=== PATIENT | female | born 1990 | race Two or more races ===

== ENCOUNTER 2018-07-03 04:29 | Inpatient (IN) | payer OTHER ==
[2018-07-03 04:55] VITALS: BMI 28.8
[2018-07-03] MEDS ORDERED: cefOXitin IV 2 gm in Dextrose 2 GM/50 ML BAG IVPB ONE (05:09)
[2018-07-03] MEDS ORDERED: Lactated Ringer's 1,000 ML IV ONE (05:09)
[2018-07-03] MEDS ORDERED: Sodium Citrate/Citric Acid 15 ml Sol PO ONE (05:09)
[2018-07-03] MEDS ORDERED: Morphine 1 mg/ml preservative-free Inj(Duramorph) ONE (05:44)
[2018-07-03] MEDS ORDERED: Phenylephrine 10 mg/ml Inj ONE (05:44)
[2018-07-03] MEDS ORDERED: ePHEDrine 50 mg/ml Inj ONE (05:44)
[2018-07-03 05:46] LABS: SQUAMOUS EPITHIAL 5 /hpf (0-5); URINE BILIRUBIN NEGATIVE (NEGATIVE); URINE BLOOD NEGATIVE (NEGATIVE); URINE CLARITY Hazy (Clear); URINE COLOR Amber (YELLOW); URINE GLUCOSE (UA) NORMAL (Normal); URINE LEUKOCYTE ESTERASE NEG Leu/uL (Negative); URINE PROTEIN 2+ mg/dL (NEGATIVE)
[2018-07-03 05:48] LABS: BASO # 0.1 K/uL (0.0-0.2); BASO % 0.7 % (0.0-2.0); EOS # 0.2 K/uL (0.0-0.7); EOS % 1.8 % (0.0-4.0); LYMPH # 2.5 K/uL (1.0-4.3); LYMPH % 22.7 % (20.0-40.0); MEAN CORPUSCULAR HEMOGLOBIN 28.9 pg (27.0-31.0); MEAN PLATELET VOLUME 7.9 fL (7.2-11.7); MONO # 0.8 K/uL (0.0-0.8); MONO % 7.9 % (0.0-10.0); NEUT # 7.2 K/uL (1.8-7.0); NEUT % 66.9 % (50.0-75.0); NRBC % 0.3 % (0.0-2.0); RBC 4.5 Mil/uL (3.80-5.20); RED CELL DISTRIBUTION WIDTH 16.7 % (11.5-14.5); WHITE BLOOD COUNT 10.8 K/uL (4.8-10.8)
[2018-07-03 06:00] LABS: ALB/GLOB RATIO 1.2 (1.0-2.1); ALBUMIN 3.7 g/dL (3.5-5.0); ALT/SGPT 10 U/L (9-52); AST/SGOT 16 U/L (14-36); BLOOD UREA NITROGEN 9 mg/dL (7-17); CALCIUM 9.3 mg/dl (8.6-10.4); GFR NON-AFRICAN AMERICAN > 60
[2018-07-03 06:04] LABS: PROTHROMBIN TIME 11.4 SECONDS (9.7-12.2)
--- NOTE | 2018-07-03 06:17 | OBHP ---
Datetime: 07/03/2018 05:30 IP Adm Impression: Term, intrauterine IP Chief Complaint Other: Cholestasis, Previous C/S x 1 IP Admit Plan: Admit to unit Admit Comment, IP Provider: Patient is a 27 year old at 38w6d MARJORIE 07/11/18 by LMP 10/04/17 who is a previous C/S x 1 who presents with cholestasis and ctx pain since last night evry 5 min 11/15. P atient is doing well, endorses FM that have been les over past week, LOF or VB. States that with thi s she was experiencing generalized itchiness and is on Ursodiol. Patient is a private of Dr Francisca Ron. 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 Age of menarche 12 Denies history of abnormal pap smears Allergies: NKDA Medications: PNV, Ursodiol, Iron Medical History: Denies Surgical History: C/S x 1, D+C Social History: Denies alcohol, tobacco, drug use PE: see above A/P: 27 year old at 38w6d hx of cholestasis of with ROM for repeat C/S -Admit to unit -CEFM and TOCO -Diet: NPO -Cefoxitin, bictra, pepcid preoperatively -LR bolus -Anesthesia notified Plan discussed with Dr Elie Luong DO PGY-2 agree iwth above pt seen adn examiend ROM , pervious cxs declien dTOLAC for RPTLCS R ron Pelvic Type - PN: Adequate Extremities - PN: Normal Abdomen - PN: Normal Back - PN: Normal Breast - PN: Normal Lungs - PN: Normal Heart - PN: Normal Thyroid - PN: Normal Neurologic - PN: Normal HEENT - PN: Normal General - PN: Normal Presentation-Admit: Vertex FHR - Baseline A Provider: 145 Membranes, Provider: Ruptured Contraction Comments Provider: q2-8 min Comments, ACOG Physical Exam: VSS Gen: NAD Abd: Soft, gravid, +palabple ctx, no rash, +excoritiosn Ext: No clubbing, cyanosis, edema Gestation - Est Wks by US: 38.6 IP Hx Assessment: The History has been Reviewed and is Current EGA AdmitDate IP: 38.6 Vital Signs Provider: Reviewed IP Chief Complaint: Uterine contractions; Suspected ruptured membranes NICHD Variability Prov Fetus A: Moderate 6-25bpm NICHD Accel Fetus A IP Provider: 15X15 FHR Category Provider Fetus A: Category I NICHD Decel Fetus A IP Provider: None Dilatation, Provider: 2 Effacement, Provider: 50 Station, Provider: -3 Genitourinary Exam: Normal DTRs - PN: Normal
[2018-07-03] MEDS ORDERED: Oxytocin 20 units in LR 2,000 ML IV ONE (06:29)
--- NOTE | 2018-07-03 06:34 | OBADHP ---
Datetime: 07/03/2018 05:30 IP Chief Complaint Other: Cholestasis, Previous C/S x 1 Admit Comment, IP Provider: Patient is a 27 year old at 38w6d MARJORIE 07/11/18 by LMP 10/04/17 who is a previous C/S x 1 who presents with cholestasis and ctx pain since last night evry 5 min /. P atient is doing well, endorses FM that have been les over past week, LOF or VB. States that with thi s she was experiencing generalized itchiness and is on Ursodiol. Patient is a private of Dr Francisca Ron. 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/17 Age of menarche 12 Denies history of abnormal pap smears Allergies: NKDA Medications: PNV, Ursodiol, Iron Medical History: Denies Surgical History: C/S x 1, D+C Social History: Denies alcohol, tobacco, drug use PE: see above A/P: 27 year old at 38w6d hx of cholestasis of with ROM for repeat C/S -Admit to unit -CEFM and TOCO -Diet: NPO -Cefoxitin, bictra, pepcid preoperatively -LR bolus -Anesthesia notified Plan discussed with Dr Elie Luong DO PGY-2 agree iwth above pt seen adn examiend ROM , pervious cxs declien dTOLAC for RPTLCS R ron Pelvic Type - PN: Adequate Extremities - PN: Normal Abdomen - PN: Normal Back - PN: Normal Breast - PN: Normal Lungs - PN: Normal Heart - PN: Normal Thyroid - PN: Normal Neurologic - PN: Normal HEENT - PN: Normal General - PN: Normal Presentation-Admit: Vertex FHR - Baseline A Provider: 145 Membranes, Provider: Ruptured Contraction Comments Provider: q2-8 min Comments, ACOG Physical Exam: VSS Gen: NAD Abd: Soft, gravid, +palabple ctx, no rash, +excoritiosn Ext: No clubbing, cyanosis, edema Gestation - Est Wks by US: 38.6 IP Hx Assessment: The History has been Reviewed and is Current Vital Signs Provider: Reviewed IP Chief Complaint: Uterine contractions; Suspected ruptured membranes NICHD Variability Prov Fetus A: Moderate 6-25bpm NICHD Accel Fetus A IP Provider: 15X15 FHR Category Provider Fetus A: Category I NICHD Decel Fetus A IP Provider: None Dilatation, Provider: 2 Effacement, Provider: 50 Station, Provider: -3 Genitourinary Exam: Normal DTRs - PN: Normal EGA AdmitDate IP: 38.6 IP Adm Impression: Term, intrauterine IP Admit Plan: Admit to unit
[2018-07-03] MEDS ORDERED: Midazolam 2 MG/2 ML VIAL ONE (07:05)
--- NOTE | 2018-07-03 07:47 | OBDS ---
DELIVERY PERSONNEL Delivery Doctor: Francisca Ron MD Scrub Nurse: NATACHA POST Ham Smoker: Anupama Manjarrez RN Anesthesiologist: DR MCKEON MATERNAL INFORMATION Delivery Anesthesia: Spinal Medications in Delivery: pitocin Placenta Cultured: No Maternal Complications: None RN Comments: alive male infant delivered by dr ron, assisted by dr pramod cortez c/s. infant attended by dr alex rn Provider Comments: boy aprag 9,9 ] nroaml ueurs, tubes adn ovaries b/l LABOR SUMMARY EDC: 07/11/2018 00:00 No. Babies in Womb: 1 Attempted: No LABOR INFORMATION Oxytocin: N/A Group B Beta Strep: Not Done Antibiotics # of Doses: MEFOXIN 2 GM X 1 Antibiotics Time of Last Dose: 6.08 am Steroids Given: None Reason Steroids Not Administered: Not Applicable MEMBRANES Membranes Rupture Method: Spontaneous Rupture of Membranes: 07/03/2018 05:58 Length of Rupture (hrs): 0.95 Amniotic Fluid Color: Clear Amniotic Fluid Amount: Moderate Amniotic Fluid Odor: Normal STAGES OF LABOR Stage 3 hrs: 0 Stage 3 min: 1 CSECTION DELIVERY Primary Indication: Repeat Elective Secondary Indication: cholestasis in preg CSection Urgency: Elective CSection Incidence: Repeat Labor: N/A Elective: Elective CSection Incision: Lower Uterine Transverse BABY A INFORMATION Delivery Date/Time: 07/03/2018 06:55 Method of Delivery: Born in Route : No : N/A Forceps: N/A Vacuum Extraction: N/A Shoulder Dystocia : No SHOULDER DYSTOCIA BABY A Infant Delivery Date/Time: 07/03/2018 06:55 PRESENTATION/POSITION BABY A Presentation: Cephalic Cephalic Presentation: Vertex Vertex Position: Right Occipital Anterior Breech Presentation: N/A PLACENTA INFORMATION BABY A Placenta Delivery Time : 07/03/2018 06:56 Placenta Method of Delivery: Manual Removal Placenta Status: Delivered SCORES BABY A Heart Rate 1 min: >100 bpm Resp Effort 1 min: Good Cry Reflex Irritability 1 min: Cough or Sneeze or Pulls Away Muscle Tone 1 min: Active Motion Color 1 min: Body [place], Extremities Blue SCORE 1 MIN: 9 Heart Rate 5 min: >100 bpm Resp Effort 5 min: Good Cry Reflex Irritability 5 min: Cough or Sneeze or Pulls Away Muscle Tone 5 min: Active Motion Color 5 min: Body [place], Extremities Blue SCORE 5 MIN: 9 INFORMATION BABY A Gestational Age at Delivery: 38.6 Gestational Status: Term Infant Outcome : Liveborn Condition : Stable Infant Sex: Male IDENTIFICATION/MEDS BABY A ID Band Number: [id number] ID Band Location: Left Leg; Left Arm Sensor Applied: Yes Sensor Number: [id number] Sensor Location : Cord Clamp Vitamin K Given : Not Given Erythromycin Given: Not Given WEIGHT/LENGTH BABY A Infant Birthweight (gms): 3635 Infant Weight (lb): 8 Weight (oz): 0 Length Inches: 19.00 Infant Length cms: 48.3 CORD INFORMATION BABY A No. 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
[2018-07-03 09:54] LABS: HEPATITIS B SURFACE AG Negative (NEGATIVE)
[2018-07-03 10:00] LABS: HEPATITIS A IGM NEGATIVE (NEGATIVE); HEPATITIS B CORE AB NEGATIVE (NEGATIVE)
[2018-07-03 10:11] LABS: HEPATITIS C ANTIBODY NEGATIVE (NEGATIVE)
[2018-07-03] MEDS: Simethicone 80 mg Chewtab PO SCH ×4 (10:50→22:41)
[2018-07-03] MEDS: Prenatal Multivit/Folic Acid/Iron Tab PO SCH (10:51)
--- NOTE | 2018-07-03 12:52 | OP ---
PROCEDURE DATE: 07/03/2018 PREOPERATIVE DIAGNOSES: Rupture of membranes, previous section, junie in labor, intrahepatic cholestasis. POSTOPERATIVE DIAGNOSES: Rupture of membranes, previous section, junie in labor, intrahepatic cholestasis. PROCEDURE: Repeat low transverse section. SURGEON: Francisca Blackburn MD ANESTHESIA: Spinal. OPERATING FINDINGS: Live male , cephalic presentation, Apgars 9 and 9. Normal-appearing uterus, tubes, and ovaries bilaterally. Chick Room Supervisor was present for delivery. Dr. Marixa Luong____ was the surgical instrument maker, present for the entire case, essentially in gaining entry, retraction, exposure, holding the bladder blade, helping in delivery of the baby, closing all layers, and was present for the entire case. ESTIMATED BLOOD LOSS: 800 mL. BLOOD PRODUCTS: None. COMPLICATIONS: None. SPECIMEN SENT TO PATHOLOGY: None. DESCRIPTION OF PROCEDURE: The patient was taken to the operating room where she was given spinal anesthesia. Once found to be adequate, she was placed on the operating table in dorsal supine position with legs supported using stirrups. The patient was then prepped and draped in the usual sterile fashion. A time-out confirmed correct patient and correct procedure. Bimanual exam was performed. A Pfannenstiel skin incision was made with a scalpel and carried down to the underlying fascia with the Bovie. The fascia was incised in the midline. The incision was extended laterally with the Bovie. The inferior aspect of the fascial incision was grasped with Tato clamps and the and the underlying rectus muscles were dissected off bluntly. The rectus muscles were then bluntly in the midline using two Allis clamps in the clear area. The peritoneum was identified and entered into clear space. The lower end of the [place] was then reinserted. Lower uterine segment was incised in a transverse fashion. The uterine incision was extended laterally with bandage scissors. The surgeon's hand entered the uterine cavity, there was clear fluid noted to be draining from the midline incision. Finally, the surgeon's hand entered the uterine cavity. The 's head was delivered atraumatically with reduction of nuchal cord. Following this, delivery of the shoulders followed by delivery of the body. Both oral and nasal passages of the baby were bulb suctioned. The umbilical cord was clamped and cut. The baby was handed off to the awaiting absence management consultant. Cord blood and cord gases were collected and sent x2. The placenta was then delivered manually. The uterus was exteriorized and cleared of all clots and debris. The uterine incision was closed with 0 Vicryl in a running continuous locked fashion. A second layer of the same suture was used to close the uterus in running imbricating manner. There were normal tubes and ovaries bilaterally. The uterus was then returned to the abdomen. Pericolic gutters were cleared of all clots and debris. There was good hemostasis at the uterine incision site. The peritoneum was reapproximated and closed with a 2-0 chromic in a running continuous fashion and the rectus was reapproximated with a 2-0 chromic in an interrupted manner. The subcutaneous space was closed with a 2-0 plain in an interrupted manner. The keloid skin incision was then carefully removed as requested by the patient, sent to pathology for culture. The skin was reapproximated with 4-0 Monocryl in a running subcuticular fashion. At the end of the procedure, all needle, sponge, and instrument counts were noted to be correct x2. The patient tolerated the procedure well and was transferred to the recovery room in stable condition. Francisca Blackburn MD JOANA
[2018-07-03] MEDS: ceFAZolin 1 GM in Sodium Chloride 0.9% 100 ML IVPB SCH ×3 (14:31→22:44)
[2018-07-03] MEDS: Oxycodone/Acetaminophen 5/325 mg Tab PO PRN (19:48)
[2018-07-04] MEDS: Oxycodone/Acetaminophen 5/325 mg Tab PO PRN ×2 (03:46→18:51)
[2018-07-04] MEDS: ceFAZolin 1 GM in Sodium Chloride 0.9% 100 ML IVPB SCH (05:23)
[2018-07-04] MEDS ORDERED: Bisacodyl 5mg EC Tab PO ONE (07:56)
[2018-07-04 08:18] LABS: HEMOGLOBIN 12.2 g/dL (11.0-16.0); MEAN CELL VOLUME 85.9 fL (81.0-99.0); MEAN CORPUSCULAR HEMOGLOBIN 28.6 pg (27.0-31.0); MEAN CORPUSCULAR HGB CONC 33.3 g/dL (33.0-37.0); MEAN PLATELET VOLUME 7.6 fL (7.2-11.7); RBC 4.27 Mil/uL (3.80-5.20); RED CELL DISTRIBUTION WIDTH 16.5 % (11.5-14.5); WHITE BLOOD COUNT 13.2 K/uL (4.8-10.8)
[2018-07-04] MEDS: Prenatal Multivit/Folic Acid/Iron Tab PO SCH (09:42)
[2018-07-04] MEDS: Simethicone 80 mg Chewtab PO SCH ×3 (09:43→17:03)
--- NOTE | 2018-07-04 14:26 | OBPPN ---
Datetime: 07/04/2018 07:02 PP Pain Prov: Within normal limits PP Nausea Prov: Denies PP Flatus Prov: No PP BM Prov: No PP C/S Incision Prov: Normal PP Progress Prov: Normal PP Comments Phys Exam Prov: inciscion c/d/i no uterine tenderss PP Impression Prov: Normal progression PP Plan Prov: Continue present management PP Progress Note Prov: Patient seen and examined at bedside. Per nursing no acute events overnight. Patient is doing well, pain is controlled with percocet. Perry removed this morning. She is out of be d to chair and tolerating diet. She has not passed flatus or had a bowel movement yet. Breast feeding . Denies headaches, dizziness, cp, palpitations, sob. VS: 104/64 104 98.0 Gen: AAOx3, NAD Resp: CTab/l CVS: +S1/S2, RRR Abdomen: Soft, fundus firm below level of umbiucs no guarding no reboudn tendnerss, no rgidty incision c/d/i with steristrips VE moder ate lochai, non fouls semlling Ext: No clubbing, cyanosis, edema Labs: 10.8>13.0/38.3<299 F/U am CBC O positive Rubella immue A/P: 27 year old at 38w6d s/p RLCTD POD#1 -Stable, afebrile -Pain control - motrin and percocet as needed -Perry removed, awaiting voiding trial -Advance diet as tolerated -F/U am CBC -Encourage ambulation and hydration -Encourage and ISS use -Continue routine postoperative care Plan discussed with Dr Alexey Luong DO PGY-2 agree with above pt seen adn examined pain managment am cbc Vital Signs Provider PP: Reviewed
[2018-07-05] MEDS: Oxycodone/Acetaminophen 5/325 mg Tab PO PRN ×5 (00:21→21:31)
[2018-07-05] MEDS: Simethicone 80 mg Chewtab PO SCH ×5 (00:22→21:27)
[2018-07-05] MEDS: Prenatal Multivit/Folic Acid/Iron Tab PO SCH (11:59)
[2018-07-06 00:25] VITALS: O2SAT 98
[2018-07-06] MEDS: Oxycodone/Acetaminophen 5/325 mg Tab PO PRN (03:04)
[2018-07-06] MEDS: Simethicone 80 mg Chewtab PO SCH (09:42)
[2018-07-06] MEDS: Prenatal Multivit/Folic Acid/Iron Tab PO SCH (09:46)
--- NOTE | 2018-07-06 11:21 | OBPPN ---
Datetime: 07/06/2018 11:20 PP Pain Prov: Within normal limits PP Nausea Prov: Denies PP Flatus Prov: Yes PP Breasts Prov: Normal PP Heart Prov: Normal PP Lungs Prov: Normal PP Abdomen/Uterus Prov: Normal PP Lochia Prov: Normal PP Vulva/Perineum Prov: Normal PP CVA Tenderness Prov: Normal PP Extremities Prov: Normal Datetime: 07/05/2018 11:24 PP BM Prov: No PP Comments Phys Exam Prov: Insicion site is clean, dry and non draining PP Impression Prov: Normal progression PP Plan Prov: Continue present management PP Progress Note Prov: Patient seen and examined at bedside this monring. No acute events noted over night. Patient denies any pain, nausea and vomiting and is using the brain without complaint. She is also tolerating her diet without difficulty. She is passing flatus but denies BM at this time. Also d enies CP, SOB, fevers, chills, headaches, back pain, abdominal paibn, numbness, tingling and swelling . VSS A/P: 27 year old at 38w6d s/p RLCTD and is POD#2 -continue routine post partem management -continue pain control as needed with percocet and motrin -continue ambulation as tolerated -advance diet as tolerated -continue breast feeding Rea Beltre, PGY1 _ agree iwth aove pt oh and mxained pain magent Vital Signs Provider PP: Reviewed; Within Normal Limits
--- NOTE | 2018-07-06 11:26 | OBPPN ---
Datetime: 07/06/2018 11:20 PP C/S Incision Prov: Normal PP Progress Prov: Normal PP Impression Prov: Normal progression PP Plan Prov: Continue present management PP Progress Note Prov: pt seen and examined vss pe see above a/p s/p RLTCS POD #3 dc home rot 1 week precaiton Vital Signs Provider PP: Reviewed; Within Normal Limits
--- NOTE | 2018-07-06 11:33 | OBDCSUM ---
Datetime: 07/06/2018 11:25 Discharged to, Provider: Home Follow up at, Provider: Dr Stewart Disch Instr Activity: Normal activity Disch Instr Diet: Regular Discharge Instructions, Provider: Routine instructions given Discharge Diagnosis, Provider: Term Delivered Discharge Time: 07/06/2018 11:25 Follow up in weeks, Provider: 1 week Disch Referrals: None Contraception discussed, Prov: Yes Disch Activity Restrictions: No exercising; No lifting Contraception after Delivery: Not Planning to Use
[2018-07-06] MEDS ORDERED: Influenza Vaccine 60 mcg/0.5 mL SYR (4YR UP) IM ONE (18:19)
[2018-07-06 23:26] VITALS: BP 116/73; PULSE 85; RESP 18; TEMP 98.3
== END 2018-07-06 17:00 | disposition home or self-care (01) | DRG 786 ==
LOC: C.EROB 04:29 → C.4D 05:09 → C.4M 11:30
PROVIDERS: ADMIT Obstetrics & Gynecology; ATTEND Obstetrics & Gynecology
PROC: 10D00Z1 Extraction of Products of Conception, Low, Open Approach (ICD-10-PCS; principal; 2018-07-03)
DX: O34.211 Maternal care for low transverse scar from previous cesarean delivery (principal); O26.62 Liver and biliary tract disorders in childbirth; K83.1 Obstruction of bile duct; Z3A.38 38 weeks gestation of pregnancy; Z37.0 Single live birth